=== PATIENT | male | born 1985 | race Caucasian/White ===

== ENCOUNTER 2017-04-15 09:01 | Emergency (ER) | payer MEDICAID ==
[~2017-04-15] VITALS: Ht 175.3 cm; Wt 82.0 kg
[~2017-04-15 09:01] MED LIST: CIPR250T2 PO; CYCL-36 PO; FIORIC PO; LEVO25TA6 PO; ZOCO40TA PO; [UNRECOGNIZED DRUG - REMARK]
[2017-04-15 09:02] VITALS: BP 141/96; PULSE 52; RESP 14; TEMP 98.5; O2SAT 100
--- NOTE | 2017-04-15 09:38 | PD ---
HPI Chief Complaint: Back/ Neck Pain or Injury Time Seen by Provider: 09:32 Travel History International Travel<30 days: No Contact w/Intl Traveler<30days: No Traveled to known affect area: No History of Present Illness HPI 31-year-old male presents to the emergency department with complaint of mid bilateral back pain that started yesterday. Reports strenuous work and heavy lifting. Says he did a lot of shoveling the other day. Denies IV drug use, cancer. Denies encopresis, incontinence, saddle anesthesias. Denies paresthesias, loss of sensation, decreased range of motion, decreased strength to all extremities. Denies fever, vomiting, change in urine or stool, abdominal pain. Denies difficulty ambulating. Has not taken any medications or tried any treatments to alleviate his symptoms. Pain is aggravated with flexing his head forward, sitting down. Describes the pain as a tension in his back. Symptoms are mild in severity. No known relieving factors. Allergies to aspirin and ibuprofen. Has no other medical complaints. No other modifying factors or associated signs and symptoms. PFSH Past Medical History Medical other: Yes (auto immune disorder "chronic hives") Thyroid Disease: Yes (LOW) ?: Not Past Surgical History Surgical History: No Previous Surgery Social History Alcohol Use: No Tobacco Use: No Substance Use: No Allergies-Medications (Allergen,Severity, Reaction): Coded Allergies: aspirin (Unverified Allergy, Severe, HIVES, 04/15/17) ibuprofen (Unverified Allergy, Severe, HIVES, 04/15/17) Reported Meds & Prescriptions Reported Meds & Active Scripts Active Robaxin (Methocarbamol) 500 Mg Tab 500 Mg PO QID PRN Flexeril (Cyclobenzaprine HCl) 10 Mg Tab 10 Mg PO TID PRN Reported [Unknown Med.] Ciprofloxacin Hcl (Ciprofloxacin HCl) 250 Mg Tab Unknown Dose PO BID Zocor 40 mg (Simvastatin) 40 Mg Tab 1 Tab PO HS Fioricet Tab (Acetaminophen/Butalbital/Caffeine) 1 Tab 1 Tab PO Q4H PRN Levothroid (Levothyroxine Sodium) 25 Mcg Tab 0 PO DAILY UNKNOWN LOWEST DOSE Review of Systems Except as stated in HPI: all other systems reviewed are Neg Physical Exam Narrative GENERAL: Well-nourished, well-developed male patient, in no acute distress; afebrile, nontoxic-appearing SKIN: Warm and dry. HEAD: Atraumatic. Normocephalic. EYES: Pupils equal and round. No scleral icterus. No injection or drainage. ENT: Mucosa pink and moist. Airway patent. NECK: Trachea midline. CARDIOVASCULAR: Regular rate. RESPIRATORY: No accessory muscle use. GASTROINTESTINAL: Flat. MUSCULOSKELETAL: Bilateral lower extremities supple and non-tense with 2+ pedal pulses and sensory intact; with full range of motion and 5/5 strength. 2 + DTRs bilaterally. Active dorsiflexion and extension of bilateral feet. Bilateral straight leg raise is negative for low back pain. Ambulatory in room with normal gait. Sitting up in bed at 90. No obvious deformities. No clubbing. No cyanosis. No edema. BACK: No midline point tenderness on palpation of the thoracic or lumbar spine. Tenderness on palpation of bilateral musculature of the thoracic and paraspinal thoracic area of the back. No obvious deformities. NEUROLOGICAL: Awake and alert. Oriented 3. No obvious cranial nerve deficits. Motor grossly within normal limits. Normal speech. Moves all extremities. 5/5 strength to all extremities. Sensory intact. PSYCHIATRIC: Appropriate mood and affect; insight and judgment normal. Data Data Last Documented VS Vital Signs Date Time Temp Pulse Resp B/P (MAP) Pulse Ox O2 Delivery O2 Flow Rate FiO2 04/15/17 09:02 98.5 52 14 141/96 (111) 100 Room Air Orders Orders Methocarbamol (Robaxin) (04/15/17 09:45) Ed Discharge Order (04/15/17 09:39) [facility] Medical Decision Making Medical Screen Exam Complete: Yes Emergency Medical Condition: Yes Medical Record Reviewed: Yes Differential Diagnosis Thoracic back strain, muscle strain of back, muscle spasm of back Narrative Course 31-year-old male physical exam and history of present illness consistent with strain of muscle and tendon of the back wall of the thorax. Reports strenuous work a few days ago. Neuro exam is unremarkable. Patient denies IV drug use or cancer. Denies encopresis from incontinence, saddle anesthesias. Patient infiltrated with normal gait. No midline tenderness on palpation of the thoracic or lumbar spine. Afebrile and nontoxic appearing. Denies fever, vomiting. Allergic to ibuprofen and aspirin. Robaxin and Tylenol administered in the ER. Instructed patient to take Tylenol as directed and as needed for pain. Robaxin prescribed for home. Instructed patient to follow up with primary care provider. Patient verbalizes understanding and agreement with treatment plan. Patient is medically cleared and stable for discharge. Discussed reasons to return to the emergency department. Patient agrees with treatment plan. The patients vital signs are stable and the patient is stable for outpatient follow-up and treatment. Patient discharged home, stable and in no acute distress. Diagnosis Primary Impression: Strain of muscle and tendon of back wall of thorax, initial encounter Referrals: [facility] Primary Care Physician Patient Instructions: General Instructions, Muscle Spasm (ED), Muscle Strain ( ED), Thoracic Back Strain (ED) Additional Instructions: Tylenol as directed and as needed for pain Robaxin as prescribed and as needed for muscle spasms Heating pad and/or ice to affected area to reduce pain Avoid aggravating activities; increase activity as tolerated Follow-up with primary care provider Return to emergency department immediately with worsening of symptoms Med/Other Pt SpecificInfo: Prescription(s) given Scripts Methocarbamol (Robaxin) 500 Mg Tab 500 MG PO QID Y for MUSCLE SPASM, #30 TAB 0 Refills Prov: Madina Payne 04/15/17 Disposition: 01 DISCHARGE HOME Condition: Stable Madina Panye Apr 15, 2017 09:38
[2017-04-15] MEDS ORDERED: ROBA500T PO (09:41)
[2017-04-15] MEDS ORDERED: METHOCARBAMOL 500 MG TAB PO ONE (09:45)
[2017-04-15] MEDS ORDERED: ACETAMINOPHEN 325 MG TAB PO ONE (10:00)
== END 2017-04-15 10:23 | disposition home or self-care (01) ==
LOC: NEPD 09:01
DX: S29.012A Strain of muscle and tendon of back wall of thorax, initial encounter (principal); X50.0XXA Overexertion from strenuous movement or load, initial encounter
CPT/HCPCS: 99283